=== PATIENT | male | born 1955 | race American Indian/Alaskan Native ===

== ENCOUNTER 2017-09-07 13:31 | Outpatient (CLI) | payer MEDICARE ==
--- NOTE | 2017-09-08 08:35 | Fluoroscopy Report ---
UPPER GI AIR CONTRAST: History: Epigastric pain. FINDINGS: 19 fluoroscopic images were captured during this exam. The patient ingested barium without difficulty. The esophageal contour is normal. There are no ulcerations or filling defects seen in the esophagus. There is normal esophageal motility. A small sliding hiatal hernia was witnessed during this exam measuring less than 5 cm. A few mild episodes of gastroesophageal reflux into the distal esophagus were witnessed. No severe reflux was witnessed. The gastric contour and position appear normal. There are no ulcerations or filling defects in the stomach. The duodenal bulb and duodenal sweep appear normal. IMPRESSION: Small sliding hiatal hernia with evidence of mild gastroesophageal reflux.
== END 2017-09-07 13:32 | disposition home or self-care (01) ==
LOC: FLUORO 13:31
PROVIDERS: ATTEND Internal Medicine
DX: K44.9 Diaphragmatic hernia without obstruction or gangrene (principal); K21.9 Gastro-esophageal reflux disease without esophagitis; I10 Essential (primary) hypertension; E78.5 Hyperlipidemia, unspecified; E78.00 Pure hypercholesterolemia, unspecified; F41.9 Anxiety disorder, unspecified; F32.9 Major depressive disorder, single episode, unspecified; M19.90 Unspecified osteoarthritis, unspecified site
CPT/HCPCS: 74247

== ENCOUNTER 2018-10-08 12:14 | Emergency (ER) | payer MEDICARE ==
[2018-10-08 12:37] VITALS: BP 146/83
[2018-10-08] MEDS ORDERED: DELTASONE PO ONE (13:22)
[2018-10-08] MEDS ORDERED: INDOCIN PO ONE (13:22)
[2018-10-08] MEDS ORDERED: DECADRON IM ONE (13:24)
--- NOTE | 2018-10-08 14:11 | XRay Report ---
LEFT FOOT 3 VIEWS INDICATION / CLINICAL INFORMATION: Pain and swelling in left foot for 2 days. COMPARISON: None available. FINDINGS: BONES and JOINT(S): No acute fracture or subluxation. Calcaneal enthesophytes are seen without additi onal significant arthritis. SOFT TISSUES: There is mild generalized edema. Moderate atherosclerosis is present anteriorly along t he ankle. ADDITIONAL FINDINGS: None. IMPRESSION: Mild generalized soft tissue swelling without an acute osseous abnormality. Signer Name: Graham Amaya MD Signed: 10/08/2018 2:06 PM Workstation Name: [id number]
--- NOTE | 2018-10-08 14:40 | Emergency Department Report ---
ED General Adult HPI - General Chief complaint: Extremity Problem,Nontraumatic Stated complaint: LT FOOT PAIN Time Seen by Provider: 10/08/18 13:11 Source: patient Mode of arrival: Ambulatory Limitations: No Limitations - History of Present Illness Initial comments: This is a 63-year-old male with the history of blood pressure takes blood pressure medication presents ED complaining of waking up yesterday morning and have pain to his left foot. Patient denies any injury. Trauma to the foot. Patient states his he does stand a lot but doesn't do a lot of walking. Patient does state that when he walks a lot he gets pains due to the fact that he had a left knee replacement some years ago. He denies any puncture wound - Related Data Home Medications Medication Instructions Recorded Confirmed Last Taken FLUoxetine [PROzac] 20 mg PO QDAY 12/07/13 12/07/13 Unknown Previous Rx's Medication Instructions Recorded Last Taken Type Aspirin 325 mg PO QDAY #30 tablet 12/08/13 Unknown Rx Lisinopril [Zestril TAB] 20 mg PO QDAY #30 tablet 12/08/13 Unknown Rx NIFEdipine XL [Procardia Xl] 30 mg PO QDAY #30 tablet 12/08/13 Unknown Rx Pravastatin [Pravachol] 20 mg PO QHS #30 12/08/13 Unknown Rx hydroCHLOROthiazide [HCTZ] 25 mg PO QDAY #30 tablet 12/08/13 Unknown Rx Indomethacin [Indocin] 25 mg PO TID #21 capsule 10/08/18 Unknown Rx Lidocaine [Lidocaine Cream] 1 applic TP BID #1 cream..g. 10/08/18 Unknown Rx Allergies Allergy/AdvReac Type Severity Reaction Status Date / Time No Known Allergies Allergy Unverified 07/10/15 12:14 ED Review of Systems ROS: Stated complaint: LT FOOT PAIN Other details as noted in HPI Comment: All other systems reviewed and negative ED Past Medical Hx - Past Medical History Previous Medical History?: Yes Hx Hypertension: Yes Hx CVA: Yes (2007) Hx Heart Attack/AMI: No Hx Congestive Heart Failure: No Hx Diabetes: No Hx Deep Vein Thrombosis: No Hx Pulmonary Embolism: No Hx Liver Disease: No Hx Renal Disease: No Hx Sickle Cell Disease: No Hx Arthritis: Yes Hx Seizures: No Hx Kidney Stones: No Hx Asthma: No Hx COPD: No Hx Tuberculosis: No Hx Dementia: No Hx HIV: No Additional medical history: cholesterol - Surgical History Past Surgical History?: Yes Hx Coronary Stent: No Hx Open Heart Surgery: No Hx Pacemaker: No Hx Internal Defibrillator: No Hx Cholecystectomy: No Hx Appendectomy: No Hx Breast Surgery: No Additional Surgical History: colon resection, Left knee - Social History Smoking Status: Former Smoker Substance Use Type: None - Medications Home Medications: Home Medications Medication Instructions Recorded Confirmed Last Taken Type FLUoxetine [PROzac] 20 mg PO QDAY 12/07/13 12/07/13 Unknown History Aspirin 325 mg PO QDAY #30 tablet 12/08/13 Unknown Rx Lisinopril [Zestril TAB] 20 mg PO QDAY #30 tablet 12/08/13 Unknown Rx NIFEdipine XL [Procardia Xl] 30 mg PO QDAY #30 tablet 12/08/13 Unknown Rx Pravastatin [Pravachol] 20 mg PO QHS #30 12/08/13 12/07/13 Unknown Rx hydroCHLOROthiazide [HCTZ] 25 mg PO QDAY #30 tablet 12/08/13 Unknown Rx Indomethacin [Indocin] 25 mg PO TID #21 capsule 10/08/18 Unknown Rx Lidocaine [Lidocaine Cream] 1 applic TP BID #1 cream..g. 10/08/18 Unknown Rx ED Physical Exam - General Limitations: No Limitations General appearance: alert, in no apparent distress - Head Head exam: Present: atraumatic, normocephalic - Eye Eye exam: Present: normal appearance - ENT ENT exam: Present: mucous membranes moist - Neck Neck exam: Present: normal inspection - Respiratory Respiratory exam: Present: normal lung sounds bilaterally. Absent: respiratory distress - Cardiovascular Cardiovascular Exam: Present: regular rate, normal rhythm. Absent: systolic murmur, diastolic murmur, rubs, gallop - GI/Abdominal GI/Abdominal exam: Present: soft, normal bowel sounds - Rectal Rectal exam: Present: deferred - Extremities Exam Extremities exam: Present: normal inspection, full ROM, tenderness (anterior foot is warm to touch.), normal capillary refill, other (tenderness to palpation of the anterior aspect of the knee and with pressure to the posterior aspect of the knee.). Absent: joint swelling, calf tenderness - Back Exam Back exam: Present: normal inspection - Neurological Exam Neurological exam: Present: alert, oriented X3 - Psychiatric Psychiatric exam: Present: normal affect, normal mood - Skin Skin exam: Present: warm, dry, intact, normal color. Absent: rash ED Course Vital Signs 10/08/18 12:34 Temperature 98.3 F Pulse Rate 103 H Respiratory 18 Rate Blood Pressure 146/83 O2 Sat by Pulse 98 Oximetry ED Medical Decision Making - Radiology Data Radiology results: report reviewed, image reviewed INDICATION / CLINICAL INFORMATION: Pain and swelling in left foot for 2 days. COMPARISON: None available. FINDINGS: BONES and JOINT(S): No acute fracture or subluxation. Calcaneal enthesophytes are seen without additional significant arthritis. SOFT TISSUES: There is mild generalized edema. Moderate atherosclerosis is present anteriorly along the ankle. ADDITIONAL FINDINGS: None. IMPRESSION: Mild generalized soft tissue swelling without an acute osseous abnormality. Signer Name: Graham Amaya MD Signed: 10/08/2018 2:06 PM Workstation Name: [id number] Transcribed By: ANA Dictated By: Graham Amaya MD Electronically Authenticated By: Graham Amaya MD Signed Date/Time: 10/08/18 9949 - Medical Decision Making 63-year-old male presents with a left foot pain. X-ray shows no acute findings. Patient did have big toe onychomycosis chronically. Discussed patient on disc to be a gout flareup recent examinations. Patient on indomethacin and steroids in the ED. He reports feeling better. Patient put in a postop shoe until follow-up with his primary care physician. - Differential Diagnosis gout, cellulitis, joint pain Critical care attestation.: If time is entered above; I have spent that time in minutes in the direct care of this critically ill patient, excluding procedure time. ED Disposition Clinical Impression: Foot pain, left, Onychomycosis, Acute pain of left foot Disposition: DC-01 TO HOME OR SELFCARE Is pt being admited?: No Does the pt Need Aspirin: No Condition: Stable Instructions: Capsaicin (On the skin), Paronychia (ED), Arthralgia (ED) Additional Instructions: Make sure to follow up with the primary care physician as discussed. Take all your medications as you've been prescribed. If you have any worsening symptoms or develop new symptoms please return to ED immediately. Prescriptions: Indomethacin [Indocin] 25 mg PO TID #21 capsule Lidocaine [Lidocaine Cream] 1 applic TP BID #1 cream..g. Referrals: PRIMARY CARE, [Primary Care Provider] - 3-5 Days [facility] [Outside] - 3-5 Days [facility] [Outside] - 3-5 Days Forms: Accompanied Note, Work/School Release Form(ED) Time of Disposition: 14:57
== END 2018-10-08 15:28 | disposition home or self-care (01) ==
LOC: ED 12:14
DX: B35.1 Tinea unguium (principal); M79.672 Pain in left foot; I10 Essential (primary) hypertension; M19.90 Unspecified osteoarthritis, unspecified site; Z86.73 Personal history of transient ischemic attack (TIA), and cerebral infarction without residual deficits; Z87.891 Personal history of nicotine dependence
CPT/HCPCS: 73630; 96372; 99283; J1100

== ENCOUNTER 2021-04-25 11:57 | Outpatient (CLI) | payer MEDICARE ==
[2021-04-25 12:59] LABS: Alanine Aminotransferase 24 units/L (7-56); Albumin 4.4 g/dL (3.9-5); BUN/Creatinine Ratio 12; Blood Urea Nitrogen 13 mg/dL (9-20); Calcium 9.2 mg/dL (8.4-10.2); Hemolysis Index 17
[2021-04-25 13:32] LABS: Hematocrit 42.1 % (35.5-45.6); Hemoglobin 14.7 gm/dl (11.8-15.2); Mean Corpuscular HGB Conc 35 % (32-34); Mean Corpuscular Volume 97 fl (84-94); Platelet Count 190 K/mm3 (140-440); Red Blood Count 4.34 M/mm3 (3.65-5.03); Red Cell Distribution Width 13.3 % (13.2-15.2)
== END 2021-04-25 11:58 | disposition home or self-care (01) ==
LOC: LAB 11:57
PROVIDERS: ATTEND Internal Medicine
DX: K21.9 Gastro-esophageal reflux disease without esophagitis (principal); J45.909 Unspecified asthma, uncomplicated; E78.00 Pure hypercholesterolemia, unspecified; I10 Essential (primary) hypertension
CPT/HCPCS: 36415; 80053; 82785; 85027; 86003

== ENCOUNTER 2021-05-10 10:30 | Emergency (ER) | payer MEDICARE ==
[2021-05-10 12:28] LABS: Hematocrit 47.7 % (35.5-45.6); Hemoglobin 15.7 gm/dl (11.8-15.2); Mean Corpuscular HGB Conc 33 % (32-34); Mean Corpuscular Volume 98 fl (84-94); Platelet Count 202 K/mm3 (140-440); Red Blood Count 4.89 M/mm3 (3.65-5.03); Red Cell Distribution Width 13.1 % (13.2-15.2)
[2021-05-10 12:37] LABS: INR 0.92 (0.87-1.13)
[2021-05-10 12:38] LABS: Partial Thromboplastin Time 25.1 Sec. (24.2-36.6)
[2021-05-10 13:07] VITALS: BP 122/65
[2021-05-10 13:14] LABS: BUN/Creatinine Ratio 17; Blood Urea Nitrogen 17 mg/dL (9-20); Calcium 9.6 mg/dL (8.4-10.2); Hemolysis Index 7
[2021-05-10 13:32] LABS: Platelet Estimate Consistent w Auto; RBC Morphology Normal; Total Cells Counted 100
--- NOTE | 2021-05-10 13:39 | Emergency Department Report ---
ED GI Bleed HPI - General Chief complaint: GI Bleed Stated complaint: BLEEDING Time Seen by Provider: 05/10/21 11:53 Source: patient Mode of arrival: Ambulatory Limitations: No Limitations - History of Present Illness Initial comments: 65-year-old male with a past medical history of hypertension, hemicolectomy for polyps, and rectal bleeding secondary to hemorrhoids presents to the hospital planing of rectal bleeding and hemorrhoids. Patient has had hemorrhoids present for the last 2 weeks and has been using Preparation H. He has noticed mild bloo d in his underwear and when wiping. Today after cleaning the area with Preparation H pad he had significant rectal bleeding. He denies lightheadedness, dizziness, palpitations, or near syncope. Patient's heart rate initially documented in the 130s. Patient's current medications include Norvasc 10 mg daily Losartan 100 mg daily pravastatin 40 mg daily Patient discontinue Esmeprazole DR 40 mg due to increase in joint pain Severity scale (0 -10): 0 - Related Data Home Medications Medication Instructions Recorded Confirmed Last Taken Albuterol Sulfate [Proair 90 mcg IH Q6H PRN 05/10/21 05/10/21 Unknown Digihaler] Esomeprazole Magnesium [NexIUM] 40 mg PO QDAY 05/10/21 05/10/21 05/10/21 Losartan [Cozaar] 100 mg PO QDAY 05/10/21 05/10/21 05/10/21 Pravastatin Sodium [Pravastatin] 40 mg PO QHS 05/10/21 05/10/21 05/09/21 amLODIPine [Norvasc] 10 mg PO DAILY 05/10/21 05/10/21 05/10/21 Previous Rx's Medication Instructions Recorded Last Taken Type Metoprolol [Lopressor TAB] 25 mg PO BID #60 tablet 05/10/21 Unknown Rx Allergies Allergy/AdvReac Type Severity Reaction Status Date / Time No Known Allergies Allergy Unverified 07/10/15 12:14 ED Review of Systems ROS: Stated complaint: BLEEDING Other details as noted in HPI Comment: All other systems reviewed and negative ED Past Medical Hx - Past Medical History Previous Medical History?: Yes Hx Hypertension: Yes Hx CVA: Yes (2007) Hx Heart Attack/AMI: No Hx Congestive Heart Failure: No Hx Diabetes: No Hx Deep Vein Thrombosis: No Hx Pulmonary Embolism: No Hx Liver Disease: No Hx Renal Disease: No Hx Sickle Cell Disease: No Hx Arthritis: Yes Hx Seizures: No Hx Kidney Stones: No Hx Asthma: No Hx COPD: No Hx Tuberculosis: No Hx Dementia: No Hx HIV: No Additional medical history: cholesterol, hemorrhoids - Surgical History Hx Coronary Stent: No Hx Open Heart Surgery: No Hx Pacemaker: No Hx Internal Defibrillator: No Hx Cholecystectomy: No Hx Appendectomy: No Hx Breast Surgery: No Additional Surgical History: colon resection, Left knee - Social History Smoking Status: Never Smoker Substance Use Type: Alcohol - Medications Home Medications: Home Medications Medication Instructions Recorded Confirmed Last Taken Type Albuterol Sulfate [Proair 90 mcg IH Q6H PRN 05/10/21 05/10/21 Unknown History Digihaler] Esomeprazole Magnesium [NexIUM] 40 mg PO QDAY 05/10/21 05/10/21 05/10/21 History Losartan [Cozaar] 100 mg PO QDAY 05/10/21 05/10/21 05/10/21 History Metoprolol [Lopressor TAB] 25 mg PO BID #60 tablet 05/10/21 Unknown Rx Pravastatin Sodium [Pravastatin] 40 mg PO QHS 05/10/21 05/10/21 05/09/21 History amLODIPine [Norvasc] 10 mg PO DAILY 05/10/21 05/10/21 05/10/21 History ED Physical Exam - General Limitations: No Limitations - Other Other exam information: General: No acute distress Head: Atraumatic Eyes: normal appearance ENT: Moist mucous membranes Neck: Normal appearance, no midline tenderness Chest: Clear to auscultation bilaterally CV: Regular rate and rhythm Abdomen: Soft, normal bowel sounds, nontender, nondistended, no rebound or guarding Rectal: Significant large external hemorrhoids noted with mild bleeding Back: Normal inspection Extremity: Normal inspection, full range of motion Neuro: Alert O x 3, no facial asymmetry, speech clear, no gross motor sensory deficit Psych: Appropriate behavior Skin: No rash ED Course Vital Signs 05/10/21 05/10/21 05/10/21 10:43 12:14 12:16 Temperature 98.2 F Pulse Rate 137 H 83 77 Respiratory 20 14 13 Rate Blood Pressure 147/94 Blood Pressure [Left] O2 Sat by Pulse 98 99 Oximetry 05/10/21 05/10/21 05/10/21 12:20 12:30 12:41 Temperature Pulse Rate 71 80 Respiratory 20 22 20 Rate Blood Pressure 143/81 Blood Pressure 150/79 [Left] O2 Sat by Pulse 99 98 99 Oximetry 05/10/21 05/10/21 12:46 13:00 Temperature Pulse Rate 64 84 Respiratory 17 18 Rate Blood Pressure 143/81 122/65 Blood Pressure [Left] O2 Sat by Pulse 99 97 Oximetry - Consultations Consultation #1: 05/10/21 13:37 Discussed with on-call quality control checker Dr. Duran who reviewed EKG. Suspected MAT. Recommend check thyroid function test and magnesium. Start metoprolol 25 mg p.o. twice daily. Patient may follow-up as an outpatient 05/10/21 15:[address] 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 ED Medical Decision Making - Lab Data Result diagrams: 05/10/21 11:58 05/10/21 11:58 Lab Results 05/10/21 05/10/21 05/10/21 Range/Units 11:58 11:58 11:58 WBC 2.6 L (4.5-11.0) K/mm3 RBC 4.89 (3.65-5.03) M/mm3 Hgb 15.7 H (11.8-15.2) gm/dl Hct 47.7 H (35.5-45.6) % MCV 98 H (84-94) fl MCH 32 (28-32) pg MCHC 33 (32-34) % RDW 13.1 L (13.2-15.2) % Plt Count 202 (140-440) K/mm3 [place] % (Auto) Manager Editorial Add Manual Diff Complete Total Counted 100 Seg Neuts % (Manual) 37.0 L (40.0-70.0) % Band Neutrophils % 0 % Lymphocytes % (Manual) 33.0 (13.4-35.0) % Reactive Lymphs % (Man) 2.0 % Monocytes % (Manual) 18.0 H (0.0-7.3) % Eosinophils % (Manual) 7.0 H (0.0-4.3) % Basophils % (Manual) 3.0 H (0.0-1.8) % Metamyelocytes % 0 % Myelocytes % 0 % Promyelocytes % 0 % Blast Cells % 0 % Nucleated RBC % Not Reportable Seg Neutrophils # Man 1.0 L (1.8-7.7) K/mm3 Band Neutrophils # 0.0 K/mm3 Lymphocytes # (Manual) 0.9 L (1.2-5.4) K/mm3 Abs React Lymphs (Man) 0.1 K/mm3 Monocytes # (Manual) 0.5 (0.0-0.8) K/mm3 Eosinophils # (Manual) 0.2 (0.0-0.4) K/mm3 Basophils # (Manual) 0.1 (0.0-0.1) K/mm3 Metamyelocytes # 0.0 K/mm3 Myelocytes # 0.0 K/mm3 Promyelocytes # 0.0 K/mm3 Blast Cells # 0.0 K/mm3 WBC Morphology Not Reportable Hypersegmented Neuts Not Reportable Hyposegmented Neuts Not Reportable Hypogranular Neuts Not Reportable Smudge Cells Not Reportable Toxic Granulation Not Reportable Toxic Vacuolation Not Reportable Dohle Bodies Not Reportable Pelger-Huet Anomaly Not Reportable Omar Rods Not Reportable Platelet Estimate Consistent w auto Clumped Platelets Not Reportable Plt Clumps, EDTA Not Reportable Large Platelets Not Reportable Giant Platelets Not Reportable Platelet Satelliting Not Reportable Plt Morphology Comment Not Reportable RBC Morphology Normal Dimorphic RBCs Not Reportable Polychromasia Not Reportable Hypochromasia Not Reportable Poikilocytosis Not Reportable Anisocytosis Not Reportable Microcytosis Not Reportable Macrocytosis Not Reportable Spherocytes Not Reportable Pappenheimer Bodies Not Reportable Sickle Cells Not Reportable Target Cells Not Reportable Tear Drop Cells Not Reportable Ovalocytes Not Reportable Helmet Cells Not Reportable Zimmerman-Stephen Bodies Not Reportable [place] Rings Not Reportable [place] Cells Not Reportable Bite Cells Not Reportable Crenated Cell Not Reportable Elliptocytes Not Reportable Acanthocytes (Spur) Not Reportable Rouleaux Not Reportable Hemoglobin C Crystals Not Reportable Schistocytes Not Reportable Malaria parasites Not Reportable Johnnie Bodies Not Reportable Hem Pathologist Commnt No PT 13.4 (12.2-14.9) Sec. INR 0.92 (0.87-1.13) APTT 25.1 (24.2-36.6) Sec. Sodium 140 (137-145) mmol/L Potassium 4.5 (3.6-5.0) mmol/L Chloride 103.9 (98-107) mmol/L Carbon Dioxide 22 (22-30) mmol/L Anion Gap 19 mmol/L BUN 17 (9-20) mg/dL Creatinine 1.0 (0.8-1.3) mg/dL Estimated GFR > 60 ml/min BUN/Creatinine Ratio 17 % Glucose 109 H (75-100) mg/dL Calcium 9.6 (8.4-10.2) mg/dL Blood Type Antibody Screen 05/10/21 Range/Units 11:58 WBC (4.5-11.0) K/mm3 RBC (3.65-5.03) M/mm3 Hgb (11.8-15.2) gm/dl Hct (35.5-45.6) % MCV (84-94) fl MCH (28-32) pg MCHC (32-34) % RDW (13.2-15.2) % Plt Count (140-440) K/mm3 [place] % (Auto) Add Manual Diff Total Counted Seg Neuts % (Manual) (40.0-70.0) % Band Neutrophils % % Lymphocytes % (Manual) (13.4-35.0) % Reactive Lymphs % (Man) % Monocytes % (Manual) (0.0-7.3) % Eosinophils % (Manual) (0.0-4.3) % Basophils % (Manual) (0.0-1.8) % Metamyelocytes % % Myelocytes % % Promyelocytes % % Blast Cells % % Nucleated RBC % Seg Neutrophils # Man (1.8-7.7) K/mm3 Band Neutrophils # K/mm3 Lymphocytes # (Manual) (1.2-5.4) K/mm3 Abs React Lymphs (Man) K/mm3 Monocytes # (Manual) (0.0-0.8) K/mm3 Eosinophils # (Manual) (0.0-0.4) K/mm3 Basophils # (Manual) (0.0-0.1) K/mm3 Metamyelocytes # K/mm3 Myelocytes # K/mm3 Promyelocytes # K/mm3 Blast Cells # K/mm3 WBC Morphology Hypersegmented Neuts Hyposegmented Neuts Hypogranular Neuts Smudge Cells Toxic Granulation Toxic Vacuolation Dohle Bodies Pelger-Huet Anomaly Omar Rods Platelet Estimate Clumped Platelets Plt Clumps, EDTA Large Platelets Giant Platelets Platelet Satelliting Plt Morphology Comment RBC Morphology Dimorphic RBCs Polychromasia Hypochromasia Poikilocytosis Anisocytosis Microcytosis Macrocytosis Spherocytes Pappenheimer Bodies Sickle Cells Target Cells Tear Drop Cells Ovalocytes Helmet Cells Zimmerman-Stephen Bodies [place] Rings [place] Cells Bite Cells Crenated Cell Elliptocytes Acanthocytes (Spur) Rouleaux Hemoglobin C Crystals Schistocytes Malaria parasites Johnnie Bodies Hem Pathologist Commnt PT (12.2-14.9) Sec. INR (0.87-1.13) APTT (24.2-36.6) Sec. Sodium (137-145) mmol/L Potassium (3.6-5.0) mmol/L Chloride (98-107) mmol/L Carbon Dioxide (22-30) mmol/L Anion Gap mmol/L BUN (9-20) mg/dL Creatinine (0.8-1.3) mg/dL Estimated GFR ml/min BUN/Creatinine Ratio % Glucose (75-100) mg/dL Calcium (8.4-10.2) mg/dL Blood Type O POSITIVE Antibody Screen Negative - EKG Data -: EKG Interpreted by Mn EKG shows normal: sinus rhythm, ST-T waves (No STEMI) Rate: tachycardia - EKG Data 05/10/21 13:52 Patient had 2 EKGs performed and has episodes of tachycardia with P waves and prolonged ME interval diuresis to sinus rhythm in the 60s. - Radiology Data Radiology results: report reviewed CT ABDOMEN AND PELVIS WITH CONTRAST HISTORY: rectal bleed, hemorrhoids. COMPARISON: None. TECHNIQUE: CT images of the abdomen and pelvis were obtained following administration of intravenous contrast. All CT scans at this location are performed using CT dose reduction for ALARA by means of automated exposure control. CONTRAST: 100 ml of intravenous contrast administered. FINDINGS: Lungs/bones: Lung bases are clear Abdomen/pelvis: Contrast timing is suboptimal. Liver, spleen, adrenal glands, pancreas, gallbladder appear normal. No definite renal stones are seen. Atherosclerotic changes seen throughout the aorta. Gallbladder appears normal. No bowel obstruction is identified. No dominant adenopathy is seen. There may be some mild rectal wall thickening however symmetric and nonspecific. Degenerative changes seen throughout spine IMPRESSION: 1. No acute findings are definitely seen. Questionable mild rectal wall thickening Signer Name: Thanh Moore MD - Medical Decision Making 65-year male presents to the hospital with bleeding hemorrhoids. Initial tachycardia thought to be secondary to intermittent MAT. Beta-kaye will be initiated as per cardiology recommendation. Outpatient referral will be provided. Patient does not have any signs of anemia or cardiopulmonary instability. Rectal bleeding has decreased. Patient will be instructed to continue topical creams with discontinue the pads since they have seem to cause more irritation. Outpatient follow-up with GI for colorectal surgery will be provided. Patient will be signed out to my colleague Dr. Heraclio Georges to follow-up on CAT scan result and continue with current discharge planning if CAT scan is unremarkable for acute findings. Critical Care Time: No Critical care attestation.: If time is entered above; I have spent that time in minutes in the direct care of this critically ill patient, excluding procedure time. ED Disposition Clinical Impression: Rectal bleeding, Bleeding hemorrhoids, Multifocal atrial tachycardia Disposition: HOME / SELF CARE / HOMELESS Is pt being admited?: No Does the pt Need Aspirin: No Condition: Stable Instructions: Rectal Bleeding, Supraventricular Tachycardia, Adult, Hemorrhoids, [id number]-[id number] Additional Instructions: Take the medication as prescribed. Continue to use hemorrhoid topical creams but avoid the Preparation H pads since this caused worsening irritation. It is important that you follow-up with cardiology and GI doctor as discussed return if symptoms worsen as indicated by your discharge instructions. Prescriptions: Metoprolol [Lopressor TAB] 25 mg PO BID #60 tablet Referrals: MARILYN HULL MD [Primary Care Provider] - 3-5 Days KAREEM DURAN MD [Staff Physician] - 3-5 Days (Housekeeper/Custodian/Laundry Worker) MARYLOU GOLDEN MD [Staff Physician] - 3-5 Days (GI doctor) Forms: Accompanied Note
[2021-05-10] MEDS ORDERED: METOPROLOL TARTRATE 50 MG TAB PO ONE (15:05)
--- NOTE | 2021-05-10 15:08 | Cat Scan Report ---
CT ABDOMEN AND PELVIS WITH CONTRAST HISTORY: rectal bleed, hemorrhoids. COMPARISON: None. TECHNIQUE: CT images of the abdomen and pelvis were obtained following administration of intravenous contrast. All CT scans at this location are performed using CT dose reduction for ALARA by means of automated exposure control. CONTRAST: 100 ml of intravenous contrast administered. FINDINGS: Lungs/bones: Lung bases are clear Abdomen/pelvis: Contrast timing is suboptimal. Liver, spleen, adrenal glands, pancreas, gallbladder appear normal. No definite renal stones are seen. Atherosclerotic changes seen throughout the aorta. Gallbladder appears normal. No bowel obstruction is identified. No dominant adenopathy is seen. There may be some mild rectal wall thickening however symmetric and nonspecific. Degenerative changes seen throughout spine IMPRESSION: 1. No acute findings are definitely seen. Questionable mild rectal wall thickening Signer Name: Thanh Moore MD Signed: 05/10/2021 3:04 PM Workstation Name: [id number]
--- NOTE | 2021-05-10 16:12 | Event Note ---
Patient Name: NISSA SINGER Gender: Male Date of : 1955 Referring Provider: PANTERA CHOWDARY Organization: [facility] Accession Number: [id number] Requested Date: May 10, 2021 12:46 Report Status: Final Requested Procedure: 1 Procedure Description: CT abdomen pelvis w con Modality: CT Findings Reporting MD: Thanh Moore Dictation Time: May 10, 2021 14:04 Alteration Worker: Not available [employer] Worker Date: CT ABDOMEN AND PELVIS WITH CONTRAST HISTORY: rectal bleed, hemorrhoids. COMPARISON: None. TECHNIQUE: CT images of the abdomen and pelvis were obtained following administration of intravenous contrast. All CT scans at this location are performed using CT dose reduction for ALARA by means of automated exposure control. CONTRAST: 100 ml of intravenous contrast administered. FINDINGS: Lungs/bones: Lung bases are clear Abdomen/pelvis: Contrast timing is suboptimal. Liver, spleen, adrenal glands, pancreas, gallbladder appear normal. No definite renal stones are seen. Atherosclerotic changes seen throughout the aorta. Gallbladder appears normal. No bowel obstruction is identified. No dominant adenopathy is seen. There may be some mild rectal wall thickening however symmetric and nonspecific. Degenerative changes seen throughout spine IMPRESSION: 1. No acute findings are definitely seen. Questionable mild rectal wall thickening Signer Name: Thanh Moore MD Signed: 05/10/2021 2:04 PM Workstation Name: [id number] I have reviewed the labs and CT. Patient is stable for discharge
[2021-05-10 16:13] LABS: Free T4 (Free Thyroxine) 1.21 ng/dL (0.76-1.46)
--- NOTE | 2021-05-11 09:34 | Electrocardiograph Report ---
[facility] Test Date: 2021-05-10 Test Time: 12:26:52 Pat Name: NISSA SINGER Department: Room: Gender: M [employer] Tr[employer] Hand: JULIET : 1955 Requested By: PANTERA CHOWDARY Order Number: [id number] Reading MD: Luis Yoder Measurements Intervals [place] Rate: 104 P: 40 MS: 154 QRS: 39 QRSD: 82 T: 33 QT: 336 QTc: 443 Interpretive Statements Paroxysmal supraventricular tachycardia SINUS RHYTHM No previous ECG available for comparison Electronically Signed On 05-11-2021 9:34:09 EDT by Luis Yoder
== END 2021-05-10 15:45 | disposition home or self-care (01) ==
LOC: ED 10:30
DX: K62.5 Hemorrhage of anus and rectum (principal); K64.8 Other hemorrhoids; I47.1 Supraventricular tachycardia; I10 Essential (primary) hypertension; Z86.73 Personal history of transient ischemic attack (TIA), and cerebral infarction without residual deficits; Z90.49 Acquired absence of other specified parts of digestive tract
CPT/HCPCS: 36415; 74177; 80048; 83735; 84439; 84443; 85007; 85025; 85610; 85730; 86850; 86900; 86901; 93005; 99284; Q9967